=== PATIENT | female | born 1960 | race Caucasian/White ===

== ENCOUNTER 2018-02-07 13:04 | Observation (INO) ==
[2018-02-07] MEDS ORDERED: Aspirin 81 MG TAB.CHEW PO ONE (13:18)
--- NOTE | 2018-02-07 13:26 | Emergency Department Note ---
Disposition Clinical Impression: Chest pain Qualifiers: Chest pain type: unspecified Qualified Code(s): R07.9 - Chest pain, unspecified Disposition: Admitted As Inpatient Condition: Good Referrals: Emperatriz Mahan MD [Primary Care Provider] - Forms: ED Satisfaction Letter Time of Disposition: 15:26 Chest Pain HPI - General Chief Complaint: ED Chest Pain Stated Complaint: tight in chest Time Seen by Provider: 02/07/18 13:18 Source: patient Mode of arrival: ambulatory Limitations: no limitations, age Vital Signs Reviewed: Yes Nursing Notes Reviewed: Yes - History of Present Illness HPI Narrative: 58-year-old history of asthma comes in complaining of shortness of breath and chest tightness. She saw family doctor was put on steroids and a Z-Dionicio without improvement. Patient states that she has exertional dyspnea. Pt complaint: chest pain Onset (ago): day(s) Duration: constant Onset: during rest, during exertion Pain Location: substernal, left chest Severity: moderate Severity scale (1-10): 5 Quality: tightness, heaviness Pain Radiation: none Improves with: nothing Worsens with: exertion Context: recent illness Treatments prior to arrival chest pain: other (Antibiotics and steroids) - Related Data Home Medications Medication Instructions Recorded Confirmed Tylenol 09/04/16 Previous Rx's Medication Instructions Recorded Cefdinir [Omnicef] 300 mg PO BID #20 capsule 09/04/16 Guaifenesin [Mucinex] 1,200 mg PO BID PRN #30 tab.er.12h 09/04/16 Allergies Allergy/AdvReac Type Severity Reaction Status Date / Time No Known Allergies Allergy Verified 09/04/16 10:07 All systems ED: reviewed and negative except as stated. Constitutional: Denies: fever, chills, weakness, weight change Eyes: Denies: eye pain, eye discharge, vision change ENT ED: Denies: ear pain, throat pain, dental pain, hearing loss, epistaxis, congestion, dysphagia Cardiovascular: Reports: chest pain, dyspnea on exertion. Denies: palpitations , edema, syncope Respiratory: Reports: cough. Denies: dyspnea, wheezes, hemoptysis, stridor Gastrointestinal: Denies: abdominal pain, nausea, vomiting, diarrhea, constipation, hematemesis, melena, hematochezia Genitourinary: Denies: dysuria, frequency, hematuria, discharge Musculoskeletal: Denies: back pain, neck pain, arthralgia, myalgia Integumentary: Denies: rash, abrasion, lesions Neurological: Denies: headache, weakness, numbness, paresthesias, confusion, abnormal gait, vertigo Psychiatric: Denies: anxiety, depression, suicidal thoughts, homicidal thoughts , auditory hallucinations, visual hallucinations Endocrine: Denies: fatigue Hematological/Lymphatic: Denies: easy bleeding, easy bruising Allergic/Immunologic: Denies: facial swelling, urticaria Chest Pain PMH - Past Medical History Medical history: Reports: non-contributory - Social History Smoking Status: Never smoker Alcohol use: Reports: none Physical Exam - General Limitations: no limitations General appearance: alert, in no apparent distress - Head Head exam: atraumatic, normocephalic, normal inspection - Eye Eye exam: Present: normal appearance, PERRL, EOMI - ENT ENT exam: normal exam, normal oropharynx, mucous membranes moist - Neck Neck exam: Present: normal inspection, full ROM, trachea midline - Chest Chest inspection: Present: normal inspection, symmetric chest wall rise - Respiratory Respiratory exam: Present: normal lung sounds bilaterally - Cardiovascular Cardiovascular exam: Present: regular rate, normal rhythm, normal heart sounds - Abdominal Exam Abdominal exam: Present: soft, Non-Tender. Absent: tenderness, distention, guarding, rebound, rigidity - Extremities Exam Extremities exam: Present: normal inspection, full ROM. Absent: tenderness, pedal edema - Expanded Lower Extremity Exam Neurovascular/Tendon exam: Absent: motor deficit, sensory deficit, tendon deficit Gait: observed and normal - Back Exam Back exam: Present: normal inspection, full ROM. Absent: tenderness - Neurological Exam Neurological exam: Present: alert, oriented X3 - Psychiatric Psychiatric exam: Present: normal affect, normal mood - Skin Skin exam: Present: warm, dry, intact, normal color Course - Reevaluation(s) Reevaluation #1: 58-year-old who comes in complaining of chest tightness with a history of asthma. Patient thought it was her asthma however she is clear she saw her family doctor was treated with steroids and antibiotics without improvement. She has component of exertional dyspnea. This point, but a written admit her as an anginal equivalent. Time: 15:25 - Consultations Consultation #1: Discussed with Dr. Miller, admit. Time: 15:25 Vital Signs Temperature 98.2 F 02/07/18 13:08 Pulse Rate 101 02/07/18 13:08 Respiratory Rate 16 02/07/18 13:08 Blood Pressure 168/96 02/07/18 13:08 O2 Sat by Pulse Oximetry 99 02/07/18 13:08 Temperature 98.2 F 02/07/18 13:41 Pulse Rate 94 02/07/18 15:23 Respiratory Rate 18 02/07/18 15:23 Blood Pressure 180/93 02/07/18 15:23 O2 Sat by Pulse Oximetry 99 02/07/18 15:23 Oxygen Delivery Oxygen Delivery Nasal Cannula Chest Pain - Lab Data Lab results reviewed: Yes I reviewed the patient's lab results. Result diagrams: 02/07/18 13:31 02/07/18 13:31 Lab Results 02/07/18 02/07/18 02/07/18 Range/Units 13:31 13:31 13:33 WBC 10.2 (4.3-11.1) K/mcL RBC 5.09 H (3.82-4.97) M/mcL Hgb 14.3 (11.5-15.4) g/dL Hct 43.6 (35.3-44.9) % MCV 85.7 (83.0-100.0) fL MCH 28.1 (28.0-33.3) pg MCHC 32.8 (31.6-35.5) g/dL RDW 13.3 (11.5-14.5) % Plt Count 305 (140-400) K/mcL MPV 10.1 (9.4-12.4) fL Immature Gran % 0.8 (0-4) % Seg Neutrophils % 54.6 % Lymphocytes % 33.2 % Monocytes % 8.1 % Eosinophils % 2.9 % Basophils % 0.4 % Neutrophils # 5.6 (1.6-8.9) K/mcL Lymphocytes # 3.4 (0.6-4.6) K/mcL Monocytes # 0.8 (0.0-1.3) K/mcL Eosinophils # 0.3 (0.0-0.6) K/mcL Basophils # 0.0 (0.0-0.2) K/mcL PT (9.4-12.1) Seconds INR APTT (26.0-36.0) Seconds D-Dimer (0-500) ng/mLFEU Sodium 141 (136-145) mEq/L Potassium 3.5 (3.5-5.1) mEq/L Chloride 106 (98-107) mEq/L Carbon Dioxide 24 (23-29) mEq/L BUN 13 (6-20) mg/dL Creatinine 0.90 (0.60-1.20) mg/dL Est GFR ( Amer) > 60 (> 60) Est GFR (Non-Af Amer) > 60 (> 60) BUN/Creatinine Ratio 14 (6-26) Glucose 128 H (70-105) mg/dL Calculated Osmolality 294 (280-300) Lactic Acid 2.4 H (0.5-2.2) mmol/L Calcium 9.6 (8.6-10.3) mg/dL Troponin I < 0.03 (< 0.04) ng/mL 02/07/18 Range/Units 13:33 WBC (4.3-11.1) K/mcL RBC (3.82-4.97) M/mcL Hgb (11.5-15.4) g/dL Hct (35.3-44.9) % MCV (83.0-100.0) fL MCH (28.0-33.3) pg MCHC (31.6-35.5) g/dL RDW (11.5-14.5) % Plt Count (140-400) K/mcL MPV (9.4-12.4) fL Immature Gran % (0-4) % Seg Neutrophils % % Lymphocytes % % Monocytes % % Eosinophils % % Basophils % % Neutrophils # (1.6-8.9) K/mcL Lymphocytes # (0.6-4.6) K/mcL Monocytes # (0.0-1.3) K/mcL Eosinophils # (0.0-0.6) K/mcL Basophils # (0.0-0.2) K/mcL PT 10.4 (9.4-12.1) Seconds INR 1.0 APTT 31.2 (26.0-36.0) Seconds D-Dimer 328 (0-500) ng/mLFEU Sodium (136-145) mEq/L Potassium (3.5-5.1) mEq/L Chloride (98-107) mEq/L Carbon Dioxide (23-29) mEq/L BUN (6-20) mg/dL Creatinine (0.60-1.20) mg/dL Est GFR ( Amer) (> 60) Est GFR (Non-Af Amer) (> 60) BUN/Creatinine Ratio (6-26) Glucose (70-105) mg/dL Calculated Osmolality (280-300) Lactic Acid (0.5-2.2) mmol/L Calcium (8.6-10.3) mg/dL Troponin I (< 0.04) ng/mL - Radiology Data Radiology results reviewed: Yes I reviewed the patient's radiology results. Chest X-Ray 02/07/18 13:19 IMPRESSION: No acute cardiopulmonary abnormality. D/ / Zack Renteria / Zack Renteria Interpreting Provider: Zack Renteria - EKG Data EKG attestation: Yes I reviewed and interpreted this EKG. EKG shows normal: sinus rhythm Rate: normal Rhythm: NSR [place]/QRS: normal Interpretation: no acute changes Heart Score - Score History: Moderately Suspicious EKG: Normal Age: 45-65 Risk Factors: 1-2 risk factors Troponin: Less than normal limit HEART Score Total: 3
[2018-02-07 13:51] LABS: Basophils % 0.4 %; Eosinophils # 0.3 K/mcL (0.0-0.6); Eosinophils % 2.9 %; Hematocrit 43.6 % (35.3-44.9); Hemoglobin 14.3 g/dL (11.5-15.4); Immature Granulocytes % 0.8 % (0-4); Lymphocytes # 3.4 K/mcL (0.6-4.6); Lymphocytes % 33.2 %; Mean Corpuscular HGB Conc 32.8 g/dL (31.6-35.5); Mean Corpuscular Hemoglobin 28.1 pg (28.0-33.3); Mean Corpuscular Volume 85.7 fL (83.0-100.0); Mean Platelet Volume 10.1 fL (9.4-12.4); Monocytes # 0.8 K/mcL (0.0-1.3); Monocytes % 8.1 %; Neutrophils # 5.6 K/mcL (1.6-8.9); Platelet Count 305 K/mcL (140-400); Red Blood Count 5.09 M/mcL (3.82-4.97); Red Cell Distribution Width 13.3 % (11.5-14.5); Segmented Neutrophils % 54.6 %
[2018-02-07 14:04] LABS: Prothrombin Time 10.4 Seconds (9.4-12.1)
[2018-02-07 14:06] LABS: Activated Partial Thrombo Time 31.2 Seconds (26.0-36.0)
[2018-02-07 14:12] LABS: Troponin I < 0.03 ng/mL (< 0.04)
[2018-02-07 14:34] LABS: BUN/Creatinine Ratio 14 (6-26); Blood Urea Nitrogen 13 mg/dL (6-20); Calcium 9.6 mg/dL (8.6-10.3); Carbon Dioxide 24 mEq/L (23-29); Chloride 106 mEq/L (98-107); Glucose 128 mg/dL (70-105); Osmolality,Calculated 294 (280-300); Potassium 3.5 mEq/L (3.5-5.1); Sodium 141 mEq/L (136-145); eGFR For African Americans > 60 (> 60); eGFR For Non-African Americans > 60 (> 60)
[2018-02-07] MEDS ORDERED: Naloxone 0.4 MG/ML INJ IVP PRN (22:23)
[2018-02-07] MEDS ORDERED: Acetaminophen 325 MG TABLET PO PRN (22:23)
[2018-02-07] MEDS ORDERED: *HR* HYDROcodone/Acet 5/325 mg TABLET PO PRN (22:23)
--- NOTE | 2018-02-07 22:38 | Internal Med History&Physical ---
<[email or web address] - Last Filed: 02/07/18 23:12> Date of Encounter: 02/07/18 Time of Encounter: 22:00 Internal Medicine - H&P: HPI Chief complaint: CP Admitted From: Emergency Dept Plans for Post Hospital Care: Home History of present illness: Ms. Acosta is a 58 year old female w/PMH of asthma and GERD presents from the ED w/CC of chest pressure and tightness located above sternum that has been intermittent for the past week and accompanied by SOB/dyspnea w/exertion. Pt. states she was placed on PO steroids and Z-júnior by PCP which did not help sx. Denies home O2 use or nebulizer txs. Uses inhalers for asthma PRN. States she takes Prilosec for GERD w/o resolve. Accompanying sx: Nausea but no vomiting, headache, shortness of breath. Reports cough as well but no radiation of pain to jaw, arm, back. Patient denies recent illness, fever, chills, vomiting, changes in vision, unusual bleeding, palpitations, abdominal pain, diarrhea, constipation, dizziness, lightheadedness, numbness, tingling, pre-syncope, or syncope. Past Med Surg Social Fam HX - Past Medical History Source: patient Medical history: asthma, GERD, glaucoma Psychiatric history: no psych history - Past Surgical History Surgical History: no surgical history - Social History Smoking Status: Former smoker Packs per day: Tried as a teenager but quit 40 years ago Smokeless Tobacco Status: No Alcohol use: none Drug use: none Occupational status: employed Current living situation: Home Activity Level: Independent ambulation Recent Out of Country Travel Within the Last 8 Weeks: No Exposure or Possible Exposure to Illness During Travel: No - Family History Father Race: Family Member Ethnicity: Non- Living Status: Age at : 70 Cause of : Lung disease Hx Family Cardiac Disorders: Yes (RI in 50's, CAD) Hx Family Respiratory Disorders: Yes (Lung disease) Mother Race: Family Member Ethnicity: Non- Living Status: Still Living Hx Family Cardiac Disorders: Yes (Stent) Hx Family Endocrine Disorder: Yes (DM) Brother Race: Family Member Ethnicity: Non- Living Status: Still Living Hx Family Endocrine Disorder: Yes (Thyroid disease, DM) Sister Race: Family Member Ethnicity: Non- Living Status: Still Living Hx Family Endocrine Disorder: Yes (Thyroid disease, DM) Internal Medicine - H&P: Meds Albuterol Sulfate [Ventolin Hfa] 2 puff IH Q4-6H PRN 02/07/18 [History] Fluticasone/Salmeterol [Advair 500-50 Diskus] 1 puff IH BID 02/07/18 [History] Latanoprost [Xalatan] 1 drop BOTH EYES HS 02/07/18 [History] Montelukast [Singulair] 10 mg PO HS 02/07/18 [History] 3 Allergy/AdvReac Type Severity Reaction Status Date / Time No Known Allergies Allergy Verified 02/07/18 16:15 All Systems PM: A 10-system review of systems was performed and is negative for pertinent findings except as documented above in the HPI. - Constitutional Constitutional: as per HPI, no chills, no fever(s), no night sweats - EENT Eyes: no change in vision, no discharge, no pain, no photophobia Ears: no ear discharge, no ear pain, no tinnitus Nose, mouth and throat: no dysphagia, no nasal discharge, no neck pain, no sore throat - Breasts Breasts: as per HPI - Cardiovascular Cardiovascular ROS IM: as per HPI, chest pain (Pressure), dyspnea, dyspnea on exertion, no diaphoresis, no lightheadedness, no palpitations, no syncope - Respiratory Respiratory: as per HPI, cough, dyspnea, dyspnea on exertion, chest congestion, no wheezing, no excessive phlegm production - Gastrointestinal Gastrointestinal: as per HPI, nausea, no abdominal pain, no diarrhea, no hematemesis, no hematochezia, no melena, no vomiting - Genitourinary Genitourinary: no change in urinary stream, no dysuria, no flank pain, no hematuria Menstruation: as per HPI - Musculoskeletal Musculoskeletal ROS IM: no numbness, no tingling - Integumentary Integumentary IM: no rash, no unusual bruising - Neurological Neurological ROS: no confusion, no convulsions, no focal weakness, no numbness, no tingling, no tremor(s) - Psychiatric Psychiatric: as per HPI - Endocrine Endocrine IM: as per HPI - Hematologic/Lymphatic Hematologic/Lymphatic: no easy bruising - Allergic/Immunologic Allergic/Immunologic: as per HPI - Constitutional Vitals: Temp Pulse Resp BP Pulse Ox 98.5 F 76 15 151/83 97 02/07/18 18:48 02/07/18 18:48 02/07/18 18:48 02/07/18 18:48 02/07/18 18:48 General appearance: Present: cooperative, mild distress (Chest pressure/ tightness), A&O X 3, pleasant, obese, answers questions appropriately - Head Head exam: Present: atraumatic, normocephalic - Eye Eye exam: Present: PERRL, conjuntiva pink, sclera anicteric Pupils: Present: PERRL - ENT ENT exam: Present: normal exam - Neck Neck exam general surgery: Present: normal inspection, supple, trachea midline. Absent: lymphadenopathy - Respiratory Respiratory exam: Present: CTAB. Absent: accessory muscle use, rales, rhonchi, wheezes - Cardiovascular Cardiovascular exam: Present: RRR, +S1, +S2. Absent: diastolic murmur, gallop, rubs, systolic murmur - GI/Abdominal GI/Abdominal exam: Present: normal bowel sounds, soft, no peritoneal signs. Absent: distended, tenderness - Rectal Rectal exam: Present: deferred - Additional comments: exam deferred. - Extremities Exam Extremities exam: Present: pedal edema, warm, radial pulses palpable and symmetrical. Absent: calf tenderness, cyanotic - Back Exam Back exam: Present: normal inspection - Neurological Exam Neurological exam: Present: CN II-XII intact, oriented X3, no focal deficits. Absent: pronater drift, facial droop, speech deficit - Psychiatric Psychiatric exam: Present: normal affect, normal mood - Skin Skin exam: Present: dry, intact Internal Med - H&P Results - Labs CBC & Chem 7: 02/07/18 13:31 02/07/18 13:31 - EKG Data EKG shows normal: sinus rhythm - EKG Data Prior EKG available for review: no Interpretation IM: normal EKG EKG comments: 02/07/18 22:44 EKG dated 02/07/18 shows sinus rhythm and normal ECG. - Diagnostic Studies Chest x-ray Additional comments: Impressions Chest X-Ray 02/07/18 13:19 IMPRESSION: No acute cardiopulmonary abnormality. D/ / Zack Renteria / Zack Renteria Interpreting Provider: Zack Renteria - Assessment and plan (1) Chest pain Current Visit: Yes Status: Acute Assessment and plan: Acute chest pressure that pt. reports as intermittent over the past week and describes as chest pressure and tightness located above sternum that has been intermittent for the past week and accompanied by SOB/dyspnea w/exertion. Accompanying sx: Nausea but no vomiting, headache, shortness of breath. Reports cough as well but no radiation of pain to jaw, arm, back. No cardiac hx or recent cardiac work-up. Initial troponin <0.03. Will trend. Echocardiogram. Continuous cardiac telemetry. Consider Cardiology consult if troponins and/or Echocardiogram results abnormal. Pt. states she would not be able to complete exercise stress d/t asthma but could do nuclear pharm if warranted by a.m. team. IVP Protonix added to assess for GERD relief. TSH/Free T4 ordered for a.m. labs d/t familial hx of thyroid disease. Supplemental O2 w/titration and SpO2 monitoring PRN. Pt. discussed w/Dr. Nixon who agrees w/plan of care. Pt. is moderate risk for cardiac event and further morbidity based on current sx, familial hx of CAD/MIs (father's RI @ 50 yo, mother's RI w/stent placement) and current risk factor of obesity. Observation. Qualifiers: Chest pain type: unspecified Qualified Code(s): R07.9 - Chest pain, unspecified (2) Asthma Current Visit: Yes Status: Chronic Assessment and plan: Hx of chronic asthma. Pt. reports increasing sx d/t current heat and humidity at workplace. Supplemental O2 w/titration and SpO2 monitoring PRN. Continue pts. inhalers. Mucinex for cough/congestion. Qualifiers: Asthma severity: unspecified severity Asthma persistence: intermittent Asthma complication type: unspecified Qualified Code(s): J45.20 - Mild intermittent asthma, uncomplicated (3) GERD (gastroesophageal reflux disease) Current Visit: Yes Status: Chronic Assessment and plan: Hx of chronic GERD that pt. states is not well-controlled by Prilosec currently. IVP Zofran 4 mg Q6HR PRN for N/V. IVP Protonix 40 mg daily. Qualifiers: Esophagitis presence: esophagitis presence not specified Qualified Code(s) : K21.9 - Gastro-esophageal reflux disease without esophagitis (4) DVT prophylaxis Current Visit: Yes Status: Acute Assessment and plan: Heparin 5,000 units SQ Q8HR for DVT prophylaxis. Monitor pt. for signs of bleeding. (5) SOB (shortness of breath) Current Visit: Yes Status: Acute Assessment and plan: Acute SOB/Dyspnea made worse w/exertion. Pt. has hx of asthma. Lungs clear on auscultation. Supplemental O2 w/titration and SpO2 monitoring PRN. Continue pts. inhalers. Mucinex for cough/congestion. - Time Spent With Patient Total time spent is greater than 50% in coordination of care (as documented) at patient's floor/unit and/or counseling patient: Greater than 35 minutes <Meseret Nixon - Last Filed: 02/07/18 23:14> Date of Encounter: 02/07/18 Internal Medicine - H&P: HPI History of present illness: Ms. Acosta is a 58 year old female All Systems PM: A 10-system review of systems was performed and is negative for pertinent findings except as documented above in the HPI. - Constitutional Vitals: Temp Pulse Resp BP Pulse Ox 98.1 F 62 16 133/82 97 02/07/18 22:55 02/07/18 22:55 02/07/18 22:55 02/07/18 22:55 02/07/18 22:55 Internal Med - H&P Results - Labs CBC & Chem 7: 02/07/18 13:31 02/07/18 13:31 - Attending Attestation I have seen and examined this patient independently. I have discussed with LINE THERAPIST Mr Bateman regarding the management plan. Agree with the documentation. - Assessment and plan (1) Chest pain Current Visit: Yes Status: Acute Qualifiers: Chest pain type: unspecified Qualified Code(s): R07.9 - Chest pain, unspecified (2) Asthma Current Visit: Yes Status: Chronic Qualifiers: Asthma severity: unspecified severity Asthma persistence: intermittent Asthma complication type: unspecified Qualified Code(s): J45.20 - Mild intermittent asthma, uncomplicated (3) GERD (gastroesophageal reflux disease) Current Visit: Yes Status: Chronic Qualifiers: Esophagitis presence: esophagitis presence not specified Qualified Code(s) : K21.9 - Gastro-esophageal reflux disease without esophagitis (4) DVT prophylaxis Current Visit: Yes Status: Acute (5) SOB (shortness of breath) Current Visit: Yes Status: Acute - Time Spent With Patient Total time spent is greater than 50% in coordination of care (as documented) at patient's floor/unit and/or counseling patient:
[2018-02-07] MEDS ORDERED: Ondansetron 4 MG/2 ML VIAL IVP PRN (22:48)
[2018-02-07] MEDS: Pantoprazole 40 MG VIAL IVP SCH (22:57)
[2018-02-08 05:24] LABS: Basophils % 0.5 %; Eosinophils # 0.3 K/mcL (0.0-0.6); Eosinophils % 4.1 %; Hematocrit 41.9 % (35.3-44.9); Hemoglobin 13.9 g/dL (11.5-15.4); Immature Granulocytes % 0.9 % (0-4); Lymphocytes # 3.4 K/mcL (0.6-4.6); Mean Corpuscular HGB Conc 33.2 g/dL (31.6-35.5); Mean Corpuscular Hemoglobin 28.7 pg (28.0-33.3); Mean Corpuscular Volume 86.4 fL (83.0-100.0); Mean Platelet Volume 9.9 fL (9.4-12.4); Monocytes # 0.7 K/mcL (0.0-1.3); Monocytes % 9.1 %; Neutrophils # 3.2 K/mcL (1.6-8.9); Platelet Count 261 K/mcL (140-400); Red Blood Count 4.85 M/mcL (3.82-4.97); Red Cell Distribution Width 13.2 % (11.5-14.5); Segmented Neutrophils % 41.4 %
[2018-02-08] MEDS: *HR* Heparin 5,000 UNIT/ML VIAL SQ SCH ×3 (05:25→20:46)
[2018-02-08 05:46] LABS: Alanine Aminotransferase 36 Units/L (7-52); Albumin 3.8 g/dL (3.5-5.7); Albumin/Globulin Ratio 1.7 (1.1-2.2); Alkaline Phosphatase 78 Units/L (34-104); Aspartate Amino Transferase 18 Units/L (13-39); BUN/Creatinine Ratio 18 (6-26); Bilirubin,Total 0.9 mg/dL (0.3-1.0); Blood Urea Nitrogen 14 mg/dL (6-20); Carbon Dioxide 26 mEq/L (23-29); Chloride 107 mEq/L (98-107); Chol/HDL Ratio 4.4 (0-4.9); Cholesterol 184 mg/dL (< 200); Globulin 2.2 g/dL (2.4-3.5); Glucose 115 mg/dL (70-105); HDL Cholesterol 42 mg/dL (40-59); LDL Cholesterol,Calculated 124 mg/dL (0-99); Magnesium 2.2 mg/dL (1.6-2.6); Osmolality,Calculated 289 (280-300); Potassium 3.9 mEq/L (3.5-5.1); Sodium 139 mEq/L (136-145); Triglycerides 88 mg/dL (< 150); eGFR For African Americans > 60 (> 60); eGFR For Non-African Americans > 60 (> 60)
[2018-02-08 06:02] LABS: Thyroid Stimulating Hormone 5.663 mcIU/mL (0.340-5.600)
[2018-02-08] MEDS ORDERED: Artificial Tears SOLN 15 ML BOTTLE BOTH EYES PRN (06:07)
--- NOTE | 2018-02-08 07:25 | Electrocardiograph Report ---
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
[2018-02-08] MEDS: Budesonide/Formoterol 160/4.5 MDI IH SCH ×2 (08:04→22:29)
[2018-02-08] MEDS ORDERED: Regadenoson 0.4 MG/5 ML SYRINGE IVP ONE (08:56)
[2018-02-08] MEDS: Aspirin Enteric Coated 81 MG Tablet PO SCH (09:01)
[2018-02-08] MEDS: Pantoprazole 40 MG VIAL IVP SCH (09:01)
[2018-02-08 16:10] LABS: Adenovirus Not Detected (Not Detect); Bordetella Pertussis Not Detected (Not Detect); Chlamydophila pneumoniae Not Detected (Not Detect); Coronavirus 229E Not Detected (Not Detect); Coronavirus HKU1 Not Detected (Not Detect); Coronavirus NL63 Not Detected (Not Detect); Coronavirus OC43 Not Detected (Not Detect); Human Metapneumovirus Not Detected (Not Detect); Human Rhinovirus/Enterovirus ***DETECTED*** (Not Detect); Influenza A Subtype 2009 H1 Not Detected (Not Detect); Influenza A Untypeable Not Detected (Not Detect); Influenza B Not Detected (Not Detect); Mycoplasma pneumoniae Not Detected (Not Detect); Parainfluenza Virus 1 Not Detected (Not Detect); Parainfluenza Virus 2 Not Detected (Not Detect); Parainfluenza Virus 3 Not Detected (Not Detect); Parainfluenza Virus 4 Not Detected (Not Detect); Respiratory Syncytial Virus Not Detected (Not Detect)
--- NOTE | 2018-02-08 17:32 | Internal Med Progress Note ---
Date of Encounter: 02/08/18 Time of Encounter: 11:15 - Assessment and plan (1) Chest pain Current Visit: Yes Status: Acute Assessment and plan: Pt reports that she has upper chest burning and some chest pressure and tightness, mostly on the right side. Pt has had recent URI, cough, chest congestion and has been treated by PCP with abx and steroids without much relief. Chest pain/pressure/tightness likely due to respiratory/pleuritic chest pain or from cough. Upper chest is tender to palpation and pt has cough with deep inspiration. Respiratory infectious panel positive for enterovirus. Chest x-ray is negative for any acute cardiopulmonary abnormality or process, patient is alternating between supplemental oxygen room air. She does not appear to be in any distress. Troponins have been negative. Echocardiogram shows LVEF of 60% with mild LV DD , mild MR, mild TR. Continue to watch patient overnight, EKG in the morning. Will hold on stress test at this time, reassess for need the morning. Qualifiers: Chest pain type: unspecified Qualified Code(s): R07.9 - Chest pain, unspecified (2) Asthma Current Visit: Yes Status: Chronic Assessment and plan: Chronic. Pt in mild exacerbation secondary to entrovirus. Continue bronchodilators, Guaifenesin, Singulair Telemetry 02 as needed to maintain sats >92% Qualifiers: Asthma severity: unspecified severity Asthma persistence: intermittent Asthma complication type: unspecified Qualified Code(s): J45.20 - Mild intermittent asthma, uncomplicated (3) GERD (gastroesophageal reflux disease) Current Visit: Yes Status: Chronic Assessment and plan: Chronic. Continue IV Zofran and Protonix . Qualifiers: Esophagitis presence: esophagitis presence not specified Qualified Code(s) : K21.9 - Gastro-esophageal reflux disease without esophagitis (4) DVT prophylaxis Current Visit: Yes Status: Acute Assessment and plan: Heparin SQ TID, encourage ambulation. (5) SOB (shortness of breath) Current Visit: Yes Status: Acute Assessment and plan: Plan as above. (6) Viral respiratory illness Current Visit: Yes Status: Acute Assessment and plan: Respiratory infectious panel positive for entero/rhinovirus. Plan as above. Symptomatic treatment. - Time Spent With Patient Total time spent is greater than 50% in coordination of care (as documented) at patient's floor/unit and/or counseling patient: less than 15 minutes - Subjective Interval history: Pt was seen and assessed at 1115. Pt had just returned from echo. She reports recent URI symptoms and treatment with abx and steroids. Pain is in upper chest , more on the right side, pt has bronchospasms with deep inspiration. Pt describes a burning sensation in upper mid chest, consistent with bronchitis. She denies SOB, n/v, diarrhea, constipation, abdominal pain, fever, or chills. - Constitutional Vitals: Temp Pulse Resp BP Pulse Ox 98.4 F 75 15 128/81 95 02/08/18 15:59 02/08/18 15:59 02/08/18 15:59 02/08/18 15:59 02/08/18 15:59 General appearance: Present: cooperative, mild distress (Chest pressure/ tightness), A&O X 3, pleasant, no acute distress, obese, answers questions appropriately - Head Head exam: Present: atraumatic, normal inspection, normocephalic - Eye Eye exam: Present: normal appearance, conjuntiva pink, sclera anicteric - Neck Neck exam general surgery: Present: supple, trachea midline. Absent: lymphadenopathy, tenderness - Respiratory Respiratory exam: Present: chest wall tenderness, decreased breath sounds, CTAB. Absent: accessory muscle use, rales, respiratory distress, rhonchi, wheezes - Cardiovascular Cardiovascular exam: Present: RRR, +S1, +S2. Absent: diastolic murmur, gallop, rubs, systolic murmur - GI/Abdominal GI/Abdominal exam: Present: normal bowel sounds, soft. Absent: distended, hepatomegaly, tenderness - Extremities Exam Extremities exam: Present: normal capillary refill, normal inspection, warm, radial pulses palpable and symmetrical. Absent: calf tenderness, cyanotic, pedal edema, tenderness - Neurological Exam Neurological exam: Present: alert, oriented X3, no focal deficits. Absent: facial droop, speech deficit - Skin Skin exam: Present: dry, intact, normal color, warm. Absent: rash Internal Medicine: Result - Labs CBC & Chem 7: 02/08/18 05:03 02/08/18 05:03 Labs: Short CBC 02/08/18 Range/Units 05:03 WBC 7.8 (4.3-11.1) K/mcL Hgb 13.9 (11.5-15.4) g/dL Hct 41.9 (35.3-44.9) % Plt Count 261 (140-400) K/mcL Neutrophils # 3.2 (1.6-8.9) K/mcL BMP 02/08/18 05:03 Sodium 139 Potassium 3.9 Chloride 107 Carbon Dioxide 26 BUN 14 Creatinine 0.78 Glucose 115 H Calcium 9.0 Cardiac Enzymes 02/07/18 02/08/18 02/08/18 Range/Units 23:07 05:03 11:31 Troponin I < 0.03 < 0.03 < 0.03 (< 0.04) ng/mL Liver Function 02/08/18 Range/Units 05:03 Total Bilirubin 0.9 (0.3-1.0) mg/dL AST 18 (13-39) Units/L ALT 36 (7-52) Units/L Alkaline Phosphatase 78 (34-104) Units/L Albumin 3.8 (3.5-5.7) g/dL - ABG Interpretation ABG results: PT/INR, D-dimer PT 10.4 Seconds (9.4-12.1) 02/07/18 13:33 D-Dimer 328 ng/mLFEU (0-500) 02/07/18 13:33 - Impressions Impressions Echocardiogram 02/08/18 22:27 Impressions: LVEF 60%. Mild left ventricular diastolic dysfunction. Normal right ventricular structure and function. Mild mitral regurgitation. Mild tricuspid regurgitation. Borderline pulmonary hypertension. Left Ventricular Wall Motion: Rest Echo Findings All wall segments showed normal motion. Findings: Study Quality * Technically adequate exam. ECG Findings * Normal sinus rhythm. Left Ventricle * LVEF 60%. * Normal LV chamber size, wall thickness and function. * Mild left ventricular diastolic dysfunction. Right Ventricle * Normal right ventricular structure and function. Left Atrium * Normal left atrial size. Right Atrium * Normal right atrial size. Mitral Valve * Normal mitral valve structure. * No mitral stenosis. * Mild mitral regurgitation. Aortic Valve * No aortic regurgitation. * Aortic valve not well visualized. * No aortic stenosis. Tricuspid Valve * Tricuspid valve not well visualized. * Mild tricuspid regurgitation. * Estimated RA pressure is 3 mmHg. * Estimated RVSP is 34 mmHg. * Borderline pulmonary hypertension. Pulmonic Valve * Pulmonic valve is not well visualized. * No pulmonic stenosis. * Trace pulmonic regurgitation. Pulmonary Artery * Pulmonary artery not well visualized. Aorta * Normally sized aortic root. Pericardium * There is no pericardial effusion present. Interatrial Septum * No evidence of PFO by color Doppler. IVC * Normal IVC dimensions and inspiratory collapse. Consult Discharge Plan - Plan Referrals: Emperatriz Mahan MD [Primary Care Provider] -
--- NOTE | 2018-02-08 18:23 | Electrocardiograph Report ---
[address] [address] Test Date: 2018-02-07 Pat Name: Sarahi Acosta Department: 103 Room: 3B64 Gender: F Iso Coordinator: RICHARD : 1960 Requested By: [id number] Order Number: [id number] Reading MD: Ricardo Coto Measurements Intervals [place] Rate: 96 P: 40 [place]: 168 QRS: 5 QRSD: 76 T: 63 QT: 352 QTc: 405 Interpretive Statements SINUS RHYTHM LOW QRS VOLTAGE IN PRECORDIAL LEADS Electronically Signed On 02-08-2018 18:21:31 EDT by Ricardo Coto
[2018-02-08] MEDS: Ipratropium/Albuterol Neb 3 ML IH SCH ×2 (18:59→22:29)
[2018-02-08] MEDS ORDERED: Latanoprost 2.5 ML BOTTLE BOTH EYES SCH (21:00)
[2018-02-09] MEDS: Ipratropium/Albuterol Neb 3 ML IH SCH ×2 (03:52→10:11)
[2018-02-09 05:35] LABS: Basophils % 0.4 %; Eosinophils # 0.3 K/mcL (0.0-0.6); Eosinophils % 3.5 %; Hematocrit 43.5 % (35.3-44.9); Hemoglobin 14.1 g/dL (11.5-15.4); Immature Granulocytes % 0.8 % (0-4); Lymphocytes # 2.7 K/mcL (0.6-4.6); Lymphocytes % 36.5 %; Mean Corpuscular HGB Conc 32.4 g/dL (31.6-35.5); Mean Corpuscular Volume 86.3 fL (83.0-100.0); Monocytes # 0.7 K/mcL (0.0-1.3); Monocytes % 9.4 %; Neutrophils # 3.7 K/mcL (1.6-8.9); Platelet Count 270 K/mcL (140-400); Red Blood Count 5.04 M/mcL (3.82-4.97); Red Cell Distribution Width 13.3 % (11.5-14.5); Segmented Neutrophils % 49.4 %
[2018-02-09] MEDS: *HR* Heparin 5,000 UNIT/ML VIAL SQ SCH (05:40)
[2018-02-09 05:56] LABS: Alanine Aminotransferase 39 Units/L (7-52); Albumin/Globulin Ratio 1.6 (1.1-2.2); Alkaline Phosphatase 81 Units/L (34-104); Aspartate Amino Transferase 18 Units/L (13-39); BUN/Creatinine Ratio 15 (6-26); Bilirubin,Total 0.7 mg/dL (0.3-1.0); Blood Urea Nitrogen 13 mg/dL (6-20); Calcium 9.2 mg/dL (8.6-10.3); Carbon Dioxide 26 mEq/L (23-29); Chloride 106 mEq/L (98-107); Globulin 2.5 g/dL (2.4-3.5); Glucose 132 mg/dL (70-105); Osmolality,Calculated 292 (280-300); Potassium 3.9 mEq/L (3.5-5.1); Sodium 140 mEq/L (136-145); Total Protein 6.5 g/dL (6.4-8.9); eGFR For African Americans > 60 (> 60); eGFR For Non-African Americans > 60 (> 60)
[2018-02-09] MEDS: Pantoprazole 40 MG VIAL IVP SCH (09:25)
[2018-02-09] MEDS: Aspirin Enteric Coated 81 MG Tablet PO SCH (09:25)
[2018-02-09] MEDS: Budesonide/Formoterol 160/4.5 MDI IH SCH (10:12)
[2018-02-09 10:55] VITALS: BP 127/81
--- NOTE | 2018-02-09 13:54 | Discharge Summary ---
- NOTES TO OUTPATIENT PROVIDER Notes to Outpatient Provider: Pt was admitted for upper chest pain/burning, chest pressure and tightness. Pt had recent URI and failed outpatient treatment. Respiratory Infectious panel positive for entro/rhinovirus. Pt also has a history or asthma and has had increased use of inhalers recently. Physical exam was unremarkable, labs and vitals are stable and WNL. Pt is stable and ready for discharge. Date of Encounter: 02/09/18 Time of Encounter: 10:15 - Discharge Diagnosis (1) Chest pain Priority: Primary Status: Acute Assessment and Plan: Pt denies chest pain today. Chest pain/pressure/tightness likely due to respiratory/pleuritic chest pain or from cough. Upper chest is tender to palpation and pt has cough with deep inspiration. Respiratory infectious panel positive for enterovirus, symptomatic treatment. Chest x-ray is negative for any acute cardiopulmonary abnormality or process, patient is alternating between supplemental oxygen room air. She does not appear to be in any distress. Troponins have been negative. Echocardiogram shows LVEF of 60% with mild LV DD , mild MR, mild TR. Stress test was canceled, chest pain is respiratory in nature. Qualifiers: Chest pain type: unspecified Qualified Code(s): R07.9 - Chest pain, unspecified (2) Asthma Priority: Secondary Status: Chronic Assessment and Plan: Chronic. Pt in mild exacerbation secondary to entrovirus. Recent increased inhaler use and increased cough. Continue bronchodilators, Guaifenesin, Singulair Pt is requesting a prescription for albuterol inhaler refill. Qualifiers: Asthma severity: unspecified severity Asthma persistence: intermittent Asthma complication type: unspecified Qualified Code(s): J45.20 - Mild intermittent asthma, uncomplicated (3) GERD (gastroesophageal reflux disease) Priority: Secondary Status: Chronic Assessment and Plan: Chronic. Continue home medications Qualifiers: Esophagitis presence: esophagitis presence not specified Qualified Code(s) : K21.9 - Gastro-esophageal reflux disease without esophagitis (4) DVT prophylaxis Priority: Secondary Status: Acute Assessment and Plan: Heparin SQ TID, encourage ambulation. (5) SOB (shortness of breath) Priority: Secondary Status: Acute Assessment and Plan: REsolved. (6) Viral respiratory illness Priority: Secondary Status: Acute Assessment and Plan: Respiratory infectious panel positive for entero/rhinovirus. Symptomatic treatment. Hospital course: Ms. Acosta is a 58 year old female with past medical history of asthma, GERD. Patient admitted for upper chest pain for approximately a week. Patient reports that she had failed outpatient therapy with antibiotics and steroids by primary care. She reports history of asthma with increased use of inhalers. Patient was admitted for chest pain rule out, nuclear stress test was canceled due to pain being respiratory in nature. Pain is reproducible deep inspiration and cough. Patient is being treated for sunshine-/rhinovirus with symptomatic treatment and mild asthma exacerbation. Patient has requested to have a nebulizer machine and duo nebs at home. Have also refilled her albuterol inhaler. Patient also reports frequent postnasal drip, will be treated with Claritin and Flonase. I have discussed symptomatic treatment with the patient. Labs and vitals are stable, patient is stable and appropriate for discharge. - Time Spent with Patient Total time spent providing and/or coordinating discharge services: - Discharge Medications Prescriptions: Ipratropium/Albuterol Neb [Duoneb] 3 ml IH [id number] #40 inhsol Albuterol Sulfate [Ventolin Hfa] 2 puff IH Q4-6H PRN #1 hfa.aer.ad PRN Reason: Shortness Of Breath Fluticasone Propionate Nasal [Flonase] 50 mcg NS DAILY #1 bottle Loratadine [Claritin] 10 mg PO DAILY #30 tablet Home Medications: Fluticasone/Salmeterol [Advair 500-50 Diskus] 1 puff IH BID 02/07/18 [History] Latanoprost [Xalatan] 1 drop BOTH EYES HS 02/07/18 [History] Montelukast [Singulair] 10 mg PO HS 02/07/18 [History] Albuterol Sulfate [Ventolin Hfa] 2 puff IH Q4-6H PRN #1 hfa.aer.ad 02/09/18 [Rx] Fluticasone Propionate Nasal [Flonase] 50 mcg NS DAILY #1 bottle 02/09/18 [Rx] Ipratropium/Albuterol Neb [Duoneb] 3 ml IH [id number] #40 inhsol 02/09/18 [Rx] Loratadine [Claritin] 10 mg PO DAILY #30 tablet 02/09/18 [Rx] Allergies/Adverse Reactions: 3 Allergy/AdvReac Type Severity Reaction Status Date / Time No Known Allergies Allergy Verified 02/07/18 16:15 Date of admission: 02/07/18 16:19 Primary care physician: Emperatriz Bravo Discharging clinician: Sabi Ybarra Anticipated date of discharge: 02/09/18 - Constitutional Vitals: Temp Pulse Resp BP Pulse Ox 98.6 F 96 16 127/81 91 02/09/18 10:54 02/09/18 10:54 02/09/18 10:54 02/09/18 10:54 02/09/18 10:54 General appearance: Present: cooperative, mild distress (Chest pressure/ tightness), A&O X 3, pleasant, no acute distress, obese, answers questions appropriately - Head Head exam: Present: atraumatic, normal inspection, normocephalic - Eye Eye exam: Present: normal appearance, conjuntiva pink, sclera anicteric - Neck Neck exam general surgery: Present: supple, trachea midline. Absent: lymphadenopathy, tenderness - Respiratory Respiratory exam: Present: CTAB. Absent: accessory muscle use, rales, rhonchi, wheezes - Cardiovascular Cardiovascular exam: Present: RRR, +S1, +S2. Absent: diastolic murmur, gallop, rubs, systolic murmur - GI/Abdominal GI/Abdominal exam: Present: normal bowel sounds, soft. Absent: distended, hepatomegaly, tenderness - Extremities Exam Extremities exam: Present: normal capillary refill, normal inspection, warm, radial pulses palpable and symmetrical. Absent: calf tenderness, cyanotic, pedal edema, tenderness - Neurological Exam Neurological exam: Present: alert, oriented X3, no focal deficits. Absent: facial droop, speech deficit - Skin Skin exam: Present: dry, intact, normal color, warm. Absent: rash - Patient Status Disposition: Home, Self-Care Condition: Good Functional capacity at discharge: independent ambulation Overall status at discharge: patient is progressing back to baseline - Discharge Instructions Follow Up With: Emperatriz Mahan MD [Primary Care Provider] - Additional Instructions: Please see your PCP in the next 5-7 days for a recheck. Your new prescriptions are at your pharmacy. Resume your normal medications and return to your normal diet and activities as tolerated. Return to work on Monday 02/12. REturn to the ER as needed for any other problems or concerns, or if your symptoms return or worsen. - Diet and Activity Activity: increase activity as tolerated Diet: advance to your usual diet
--- NOTE | 2018-02-11 07:00 | Electrocardiograph Report ---
[place] [address] Test Date: 2018-02-09 Pat Name: Sarahi Acosta Department: 113 Room: 3B64 Gender: F Surveillance Operator: GUADALUPE : 1960 Requested By: Sabi Ybarra Order Number: [id number] Reading MD: Ricardo Coto Measurements Intervals [place] Rate: 75 P: 24 [place]: 179 QRS: 11 QRSD: 85 T: 51 QT: 378 QTc: 407 Interpretive Statements SINUS RHYTHM Electronically Signed On 02-11-2018 6:59:16 EDT by Ricardo Coto
[2018-02-11 16:06] LABS: Estimated Average Glucose 134 mg/dl; Hemoglobin A1C 6.3 %
== END 2018-02-09 15:16 | disposition home or self-care (01) ==
LOC: EMEROO 13:04 → 3BNU 13:04
PROVIDERS: ADMIT Hospitalist; ATTEND Hospitalist

== ENCOUNTER 2020-11-01 18:43 | Observation (INO) ==
[2020-11-01 19:17] LABS: Basophils % 0.3 %; Eosinophils # 0.2 K/mcL (0.0-0.6); Eosinophils % 1.4 %; Hematocrit 41.8 % (35.3-44.9); Hemoglobin 13.4 g/dL (11.5-15.4); Immature Granulocytes % 1.5 % (0-4); Lymphocytes % 21.8 %; Mean Corpuscular HGB Conc 32.1 g/dL (31.6-35.5); Mean Corpuscular Volume 87.4 fL (83.0-100.0); Mean Platelet Volume 10.2 fL (9.4-12.4); Monocytes % 7.3 %; Neutrophils # 9.3 K/mcL (1.6-8.9); Platelet Count 261 K/mcL (140-400); Red Blood Count 4.78 M/mcL (3.82-4.97); Red Cell Distribution Width 14.1 % (11.5-14.5); Segmented Neutrophils % 67.7 %; White Blood Count 13.7 K/mcL (4.3-11.1)
[2020-11-01] MEDS ORDERED: Isovue-370 500 ML BOTTLE IVP ONE (19:17)
[2020-11-01 19:57] LABS: BUN/Creatinine Ratio 26 (6-26); Blood Urea Nitrogen 17 mg/dL (8-23); Calcium 8.9 mg/dL (8.6-10.3); Carbon Dioxide 19 mEq/L (23-29); Chloride 107 mEq/L (98-107); Glucose 178 mg/dL (70-105); Osmolality,Calculated 294 (280-300); Potassium 3.6 mEq/L (3.5-5.1); Sodium 139 mEq/L (136-145); Troponin I < 0.03 ng/mL (< 0.04); eGFR For African Americans > 60 (> 60); eGFR For Non-African Americans > 60 (> 60)
[2020-11-01] MEDS ORDERED: Naloxone 0.4 MG/ML INJ IVP PRN (22:08)
[2020-11-01] MEDS ORDERED: Ondansetron ODT 4 MG TAB.RAPDIS SL PRN (22:08)
[2020-11-01] MEDS ORDERED: Acetaminophen 325 MG TABLET PO PRN (22:08)
[2020-11-02] MEDS ORDERED: Perflutren Lipid Microsphere 1.3 ML in 0.9 % Sodium Chloride 8.7 ML IVP PRN (00:12)
[2020-11-02] MEDS ORDERED: Ipratropium/Albuterol Neb 3 ML IH PRN (00:16)
[2020-11-02] MEDS: MethylPREDNISolone 40 MG/ML VIAL IVP SCH ×2 (06:31→17:15)
[2020-11-02 07:05] LABS: Basophils # 0.1 K/mcL (0.0-0.2); Basophils % 0.5 %; Eosinophils # 0.4 K/mcL (0.0-0.6); Eosinophils % 3.4 %; Hematocrit 41.5 % (35.3-44.9); Hemoglobin 13.3 g/dL (11.5-15.4); Immature Granulocytes % 1.4 % (0-4); Lymphocytes # 3.8 K/mcL (0.6-4.6); Lymphocytes % 35.4 %; Mean Corpuscular Hemoglobin 28.2 pg (28.0-33.3); Mean Corpuscular Volume 87.9 fL (83.0-100.0); Monocytes # 0.9 K/mcL (0.0-1.3); Monocytes % 8.5 %; Neutrophils # 5.4 K/mcL (1.6-8.9); Platelet Count 242 K/mcL (140-400); Red Blood Count 4.72 M/mcL (3.82-4.97); Red Cell Distribution Width 14.2 % (11.5-14.5); Segmented Neutrophils % 50.8 %; White Blood Count 10.7 K/mcL (4.3-11.1)
[2020-11-02 07:06] LABS: Prothrombin Time 11.1 Seconds (9.4-12.1)
[2020-11-02 07:23] LABS: BUN/Creatinine Ratio 25 (6-26); Blood Urea Nitrogen 15 mg/dL (8-23); Calcium 9.2 mg/dL (8.6-10.3); Carbon Dioxide 25 mEq/L (23-29); Chloride 108 mEq/L (98-107); Glucose 98 mg/dL (70-105); Osmolality,Calculated 291 (280-300); Potassium 3.6 mEq/L (3.5-5.1); Sodium 140 mEq/L (136-145); eGFR For African Americans > 60 (> 60); eGFR For Non-African Americans > 60 (> 60)
[2020-11-02] MEDS: Budesonide/Formoterol 160/4.5 1 PUFF INH IH SCH ×2 (08:08→19:56)
[2020-11-02] MEDS: Apixaban 5 MG TABLET PO SCH (08:15)
[2020-11-02] MEDS: Loratadine 10 MG TABLET PO SCH (08:15)
[2020-11-02] MEDS: Fluticasone Propionate Nasal 50 MCG/SPRAY BOTTLE NS SCH (08:15)
[2020-11-02] MEDS ORDERED: Azithromycin 500 MG in 0.9 % Sodium Chloride 250 ML IVPB SCH (09:00)
[2020-11-02 11:11] LABS: Adenovirus Not Detected (Not Detect); Bordetella Pertussis Not Detected (Not Detect); Chlamydophila pneumoniae Not Detected (Not Detect); Coronavirus 229E Not Detected (Not Detect); Coronavirus HKU1 Not Detected (Not Detect); Coronavirus NL63 Not Detected (Not Detect); Coronavirus OC43 Not Detected (Not Detect); Human Metapneumovirus Not Detected (Not Detect); Human Rhinovirus/Enterovirus Not Detected (Not Detect); Influenza A Subtype 2009 H1 Not Detected (Not Detect); Influenza B Not Detected (Not Detect); Mycoplasma pneumoniae Not Detected (Not Detect); Parainfluenza Virus 1 Not Detected (Not Detect); Parainfluenza Virus 2 Not Detected (Not Detect); Parainfluenza Virus 3 Not Detected (Not Detect); Parainfluenza Virus 4 Not Detected (Not Detect); Respiratory Syncytial Virus Not Detected (Not Detect)
[2020-11-02] MEDS: Doxycycline 100 MG CAPSULE PO SCH (20:29)
[2020-11-03 07:07] VITALS: BP 130/79
[2020-11-03] MEDS: Budesonide/Formoterol 160/4.5 1 PUFF INH IH SCH (07:45)
[2020-11-03] MEDS ORDERED: predniSONE 20 MG TABLET PO SCH (09:00)
[2020-11-03] MEDS: Doxycycline 100 MG CAPSULE PO SCH (09:03)
[2020-11-03] MEDS: Apixaban 5 MG TABLET PO SCH (09:03)
[2020-11-03] MEDS: Fluticasone Propionate Nasal 50 MCG/SPRAY BOTTLE NS SCH (09:03)
[2020-11-03] MEDS: Loratadine 10 MG TABLET PO SCH (09:03)
== END 2020-11-03 11:19 | disposition home or self-care (01) ==
LOC: 3BNU 18:43 → EMEROOARM 18:43 → SUATTDRO 22:02 → 3BNU 22:45
PROVIDERS: ADMIT Internal Medicine; ATTEND Internal Medicine